=== PATIENT | female | born 1955 | race Caucasian/White ===

== ENCOUNTER 2024-12-24 07:19 | Emergency (ER) | payer OTHER ==
[~2024-12-24] VITALS: Ht 165.1 cm; Wt 81.0 kg
[2024-12-24 07:48] VITALS: PULSE 65; RESP 17; O2SAT 100
[2024-12-24] MEDS: SODIUM CHLORIDE 0.9% 1,000 ML IV ONE ×3 (08:06→12:44)
--- NOTE | 2024-12-24 08:22 | ED.PDOC ---
History of Present Illness HPI Comments 69 y.o female with PMHx of [place] x2, presents to the ED via EMS s/p syncopal episode today. EMS reports patient was seen about one week ago at a hospital, was diagnosed with a kidney stone and transported to a [facility] where she underwent surgical intervention to remove stone and had a kidney stent placed. Patient reports vaginal bleeding began one day ago and today was passing large blood clots the size of a fist. Per son on scene, patient got up to use the restroom and had a syncopal episode. Patient was placed on Brilinta s/p kidney procedure. No head injuries or trauma reported. Patient denies any chest pain, nausea, vomiting, diarrhea. EMS reports patient was hypotensive on scene measuring 90 systolic and was given 500 cc IV fluids. 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: No Pertinent SECONDARY SET UP MAN History Family History Family History: Reviewed,noncontributory to illness Social History Smoker: Non-Smoker Alcohol: Denies ETOH Use Drugs: Denies Drug Use Lives In: Home Constitutional: denies: chills, diaphoresis, fatigue, fever, malaise, sweats, weakness, others EENTM: denies: blurred vision, double vision, ear bleeding, ear discharge, ear drainage, ear pain, ear ringing, eye pain, eye redness, hearing loss, mouth pain, mouth swelling, nasal discharge, nose bleeding, nose congestion, nose pain, photophobia, tearing, throat pain, throat swelling, voice changes, others Respiratory: denies: cough, hemoptysis, orthopnea, SOB at rest, shortness of breath, SOB with excertion, stridor, wheezing, others Cardiovascular: reports: syncope; denies: chest pain, dizzy spells, diaphoresis, Dyspnea on exertion, edema, irregular heart beat, left arm pain, lightheadedness, palpitations, PND, others Gastrointestinal: denies: abdomen distended, abdominal pain, blood streaked bowels, constipated, diarrhea, dysphagia, difficulty swallowing, hematemesis, melena, nausea, poor appetite, poor fluid intake, rectal bleeding, rectal pain, vomiting, others Genitourinary: reports: abnormal vagina bleeding; denies: burning, dyspareunia, dysuria, flank pain, frequency, hematuria, incontinence, pain, , vagina discharge, urgency, others Neurological: denies: dizziness, fainting, headache, left sided numbness, left sided weakness, numbness, paresthesia, pre-existing deficit, right sided numbness, right sided weakness, seizure, speech problems, tingling, tremors, weakness, others Musculoskeletal: denies: back pain, gout, joint pain, joint swelling, muscle pain, muscle stiffness, neck pain, others Integumetry: denies: bruises, change in color, change in hair/nails, dryness, laceration, lesions, lumps, rash, wounds, others Allergic/Immunocompromised: denies: Difficulty Healing, Frequent Infections, Hives, Itching, others Hematologic/Lymphatic: denies: anemia, blood clots, easy bleeding, easy bruising, swollen glands, others Endocrine: denies: excessive hunger, excessive sweating, excessive thirst, excessive urination, flushing, intolerance to cold, intolerance to heat, unexplained weight gain, unexplained weight loss, others Psychiatric: denies: anxiety, bipolar disorder, depression, hopeless, panic disorder, schizophrenia, sleepless, suicidal, others All Other Systems: Reviewed and Negative Physical Exam General Appearance: Moderate Distress HEENT: Normal ENT Inspection, Pharynx Normal, TMs Normal Neck: Full Range of Motion, Non-Tender, Normal, Normal Inspection Respiratory: Chest Non-Tender, Lungs Clear, No Accessory Muscle Use, No Respiratory Distress, Normal Breath Sounds Cardiovascular: No Edema, No JVD, No Murmur, No Gallop, Normal Peripheral Pulses, Regular Rate/Rhythm Breast Exam: Deferred Gastrointestinal: No Organomegaly, Non Tender, No Pulsatile Mass, Normal Bowel Sounds, Soft Genitalia: Deferred Pelvic: Deferred Rectal: Deferred Extremities: No calf tenderness, Normal capillary refill, Normal inspection, Normal range of motion, Non-tender, No pedal edema Musculoskeletal : Apperance: Normal Neurologic: Alert, lactation specialist II-XII nml as Tested, No Motor Deficits, Normal Affect, Normal Mood, No Sensory Deficits Cerebellar Function: NOT DONE Reflexes: NOT DONE Skin: Dry, Normal Color, Warm Peripheral Pulses: 3+ Radial (R), 3+ Radial (L) Lymphatic: No Adenopathy Was a procedure done? Was a procedure done?: No Differential Dx Considerations may include: Dehydration, electrolyte imbalance X-Ray, Labs, Meds, VS Vital Signs Date Time Temp Pulse Resp B/P (MAP) Pulse Ox O2 Delivery O2 Flow Rate FiO2 12/24/24 07:30 97.8 68 16 101/66 95 97.8 Lab Test 12/24/24 09:59 12/24/24 08:09 Range/Units Urine Color Red H Yellow Urine Clarity Cloudy H Clear Urine pH 8.0 5.0-9.0 Urine Specific [place] 1.015 1.001-1.035 Urine Protein 2+ H Negative Urine Ketones Negative Negative Urine Blood 3+ H Negative /uL Urine Nitrite Negative Negative Urine Bilirubin Negative Negative Urine Urobilinogen Normal Negative mg/dL Urine Leukocyte Esterase Negative Negative /uL Urine RBC >100 0 - 4 /hpf Urine Microscopic WBC 5 0-5 /HPF Urine Squamous Epithelial Cells 5 <5 /hpf Urine Bacteria Few H None Seen /hpf Urine Glucose Trace H Normal mg/dL White Blood Count 11.7 H 4.4-10.8 10^3/uL Red Blood Count 3.30 L 4.0-5.20 10^6/uL Hemoglobin 9.3 L 12.2-16.2 g/dL Hematocrit 27.9 L 36.0-46.0 % Mean Corpuscular Volume 84.6 80.0-100.0 fL Mean Corpuscular Hemoglobin 28.3 28.0-32.0 pg Mean Corpuscular Hemoglobin Concent 33.5 32.0-36.0 g/dL Red Cell Distribution Width 15.8 H 11.8-14.3 % Platelet Count 241 140-450 10^3/uL Mean Platelet Volume 8.5 6.9-10.8 fL Neutrophils (%) (Auto) 86.0 H 37.0-80.0 % Lymphocytes (%) (Auto) 5.2 L 10.0-50.0 % Monocytes (%) (Auto) 8.0 0.0-12.0 % Eosinophils (%) (Auto) 0.5 0.0-7.0 % Basophils (%) (Auto) 0.3 0.0-2.0 % Neutrophils # (Auto) 10.1 H 1.6-8.6 10 ^3/uL Lymphocytes # (Auto) 0.6 0.4-5.4 10 ^3/uL Monocytes # (Auto) 0.9 0-1.3 10 ^3/uL Eosinophils # (Auto) 0.1 0-0.8 10 ^3/uL Basophils # (Auto) 0 0-0.2 10 ^3/uL Nucleated Red Blood Cells 0.0 % Sodium Level 139 136-145 mmol/L Potassium Level 3.8 3.5-5.1 mmol/L Chloride Level 105 98-107 mmol/L Carbon Dioxide Level 24 20-31 mmol/L Anion Gap 10 5-15 Blood Urea Nitrogen 18 9-23 mg/dL Creatinine 1.34 H 0.550-1.02 mg/dL Glomerular Filtration Rate Calc 43 >90 mL/min BUN/Creatinine Ratio 13.4 10.0-20.0 Serum Glucose 123 H 74-106 mg/dL Calcium Level 8.0 L 8.7-10.4 mg/dL Current Medications Medications (Trade) Dose Ordered Sig/Zainab Route Start Time Stop Time Status Last Admin Sodium Chloride 1,000 ml @ 1,000 mls/hr Q1H ONCE IV 12/24/24 07:45 12/24/24 08:44 DC 12/24/24 08:06 Sodium Chloride 1,000 ml @ 1,000 mls/hr Q1H ONCE IV 12/24/24 08:00 12/24/24 08:59 DC 12/24/24 10:16 Patient alert. Complaining of vaginal bleeding. Vitals stable. Answering questions. Possible fibroid. She does take blood thinners. Hemoglobin slightly low. WBC elevated pain Explained to the patient. OBGYN consultation. Will be transferred to [facility] [phone]. Time of 1ST Reevaluation: 08:21 Reevaluation 1ST: Unchanged Patient Education/Counseling: Diagnosis, Treatment, Prognosis Family Education/Counseling: No Family Present SEPSIS Sepsis Screen Date sepsis recognized/suspect: Dec 24, 2024 Time Sepsis recognized/suspect: 717 Recent Procedure: No On Antibiotic Therapy: No Respiratory Rate >20: No Heart Rate >90: No Temp<36 C (96.8 F) or >38.3 C: No SBP <90 or MAP <65 mmHG: No New Acute Mental Status Change: No Is the patient on CPAP, BIPAP,: No Physician Orders Sodium Chloride 0.9% (12/24/24 08:00) Pelvic (12/24/24 12:01) Ceftriaxone 1gm/50ml (Rocephin) (12/24/24 12:15) Vital Signs Date Time Temp Pulse Resp B/P (MAP) Pulse Ox O2 Delivery O2 Flow Rate FiO2 12/24/24 07:30 97.8 68 16 101/66 95 97.8 Laboratory Tests Test 12/24/24 08:09 White Blood Count 11.7 10^3/uL (4.4-10.8) H Medications Medications Dose Ordered Sig/Zainab Route Start Time Stop Time Status Last Admin Dose Admin Sodium Chloride 1,000 ml @ 1,000 mls/hr Q1H ONCE IV 12/24/24 07:45 12/24/24 08:44 DC 12/24/24 08:06 Sodium Chloride 1,000 ml @ 1,000 mls/hr Q1H ONCE IV 12/24/24 08:00 12/24/24 08:59 DC 12/24/24 10:16 Departure 1 Departure Time of Disposition: 12:03 Impression: Primary Impression: Vaginal bleeding Disposition: 02 SHORT TERM HOSPITAL Admit to: Med Surg Condition: Guarded Critical Care Note Critical Care Time?: Yes (90 min-critical care time only) Stability Stability form required: No Heart Score Heart Score: Heart Score Response (Comments) Value History N/A 0 EKG N/A 0 Age N/A 0 Risk Factors N/A 0 Troponin N/A 0 Total 0 I personally scribed for MICHELLE CANDELARIA MD ([email or web address]) on 12/24/24 at 08:22. Electronically submitted by Berenice Mendez ([facility]). MICHELLE CANDELARIA MD Dec 24, 2024 08:22
[2024-12-24 08:31] LABS: Hematocrit 27.9 % (36.0-46.0); Hemoglobin 9.3 g/dL (12.2-16.2); Mean Corpuscular Hemoglobin 28.3 pg (28.0-32.0); Mean Corpuscular Volume 84.6 fL (80.0-100.0); Nucleated Red Blood Cells % 0.0 %
[2024-12-24 08:43] LABS: Chloride 105 mmol/L (98-107); Potassium 3.8 mmol/L (3.5-5.1); Sodium 139 mmol/L (136-145)
[2024-12-24 08:44] LABS: Anion Gap 10 (5-15); Carbon Dioxide 24 mmol/L (20-31)
[2024-12-24 08:45] LABS: Calcium 8.0 mg/dL (8.7-10.4)
[2024-12-24 08:49] LABS: BUN/Creatinine Ratio 13.4 (10.0-20.0); Blood Urea Nitrogen 18 mg/dL (9-23)
[2024-12-24 08:53] LABS: Glucose 123 mg/dL (74-106)
[2024-12-24 11:08] LABS: Urine Protein, UAD 2+ (Negative)
--- NOTE | 2024-12-24 12:51 | DVH ---
CLINICAL HISTORY: FIBROID COMPARISON:None TECHNIQUE: Transabdominal grayscale sonographic imaging of the uterus and ovaries was performed, assi sted by color Doppler technique. . The patient declined transvaginal examination. FINDINGS: The uterus measures 9.4 x 3.6 x 4.8 cm. There is homogeneous echogenicity. Endometrial thic kness measures 0.3 cm, within normal limits. Neither ovary is visualized. There is an ovoid mass within the bladder measuring up to 5.5 x 4.7 x 6.0 cm. IMPRESSION: 1. Unremarkable transabdominal sonographic appearance of the uterus. Patient declined transvaginal e xamination, limiting evaluation. 2. Neither ovary was visualized. 3. Ovoid mass within the bladder measuring up to 6 cm. Neoplasm, including malignancy can not be excl uded. Correlate with clinical findings. MRI may be helpful to further characterize if clinically leon cated.
[2024-12-24 15:45] VITALS: BP 158/60; PULSE 72; RESP 24; TEMP 97.8; O2SAT 97
== END 2024-12-24 16:29 | disposition short-term general hospital (02) ==
LOC: ER 07:19 → EDBD 07:19 → ER 16:29
DX: N93.9 Abnormal uterine and vaginal bleeding, unspecified (principal); I25.2 Old myocardial infarction; Z79.899 Other long term (current) drug therapy
CPT/HCPCS: 36415; 76856; 80048; 81001; 85025; 96361; 96365; 99285; J0696; J7030